=== PATIENT | female | born 1955 | race Caucasian/White ===

== ENCOUNTER → 2019-11-08 | Outpatient (CLI) | payer MEDICARE, MEDICAID | LOC: COL.CARD 11-04 07:30 | DX: C50.412 Malignant neoplasm of upper-outer quadrant of left female breast (principal) | CPT/HCPCS: Q9967 ==

== ENCOUNTER → 2021-01-30 | Outpatient (CLI) | payer MEDICARE, MEDICAID | LOC: COL.RAD 09:16 | DX: R93.7 Abnormal findings on diagnostic imaging of other parts of musculoskeletal system (principal); C50.412 Malignant neoplasm of upper-outer quadrant of left female breast | CPT/HCPCS: A9503 ==